=== PATIENT | male | born 1955 | race Caucasian/White ===

== ENCOUNTER → 2016-12-26 | Outpatient (CLI) | payer OTHER ==
[2015-04-15 14:56] VITALS: BP 112/60
[~2016-12-26] MED LIST: DULA0.75 SQ; GLIP-112 PO; METF500T4 PO
--- NOTE | 2016-12-26 11:14 | RAD ---
Indication chronic shoulder pain. Internally and externally rotated views of the right shoulder as well as a Y view were obtained. There is some minimal degenerative change at the AC joint. Significant glenohumeral degenerative change is not seen. An acute bony finding is not apparent.
--- NOTE | 2016-12-26 11:15 | RAD ---
Indication chronic knee pain. AP and lateral views of the left knee were obtained. Bony mineralization appears normal. An acute finding is not seen. Significant degenerative changes are not apparent on plain films. IMPRESSION: No acute or significant finding seen on plain films of the left knee
== END | disposition home or self-care (01) ==
LOC: RAD 10:20
PROVIDERS: ATTEND Family Medicine
DX: M19.011 Primary osteoarthritis, right shoulder (principal); M25.562 Pain in left knee
CPT/HCPCS: 73030; 73560